=== PATIENT | female | born 1930 | race Caucasian/White ===

== ENCOUNTER 2017-10-10 15:14 | Inpatient (IN) | payer MEDICARE ==
[~2017-10-10] VITALS: Ht 152.4 cm; Wt 66.5 kg
[~2017-10-10 15:14] MED LIST: CALC-137 PO; LEVO.125 PO; LOTE40TA PO; REST0.05 OU; TAB-TAB PO; ZIAC2.5T PO
[2017-10-10 15:32] VITALS: BP 162/65; PULSE 56; RESP 17; TEMP 97.6; O2SAT 98
[2017-10-10] MEDS ORDERED: SODIUM CHLORIDE 0.9% FLUSH 10 ML FLUSH IVF PRN (16:15)
--- NOTE | 2017-10-10 16:35 | PD ---
HPI Chief Complaint: Medical Clearance Time Seen by Provider: 16:01 Travel History International Travel<30 days: No Contact w/Intl Traveler<30days: No Traveled to known affect area: No History of Present Illness HPI Patient is an 87-year-old female presented to the emergency department for evaluation of a near syncopal episode. Patient states she was going to eat with her daughter, she was sitting in the car and she suddenly felt hot, dizzy and as if she was going to pass out. She denies any chest pain or shortness of breath, she states that she just "felt funny". Patient reports feeling tired now and continues to deny any chest pain, shortness of breath, dizziness. She reports that she has not been sleeping well for the last 2 nights because of the temperature in her home. She states that she lives alone. Symptom onset was sudden, symptom severity was moderate, there were no alleviating or exacerbating factors. PFSH Past Medical History Arthritis: Yes Cancer: No Cardiovascular Problems: Yes Diabetes: No Endocrine: Yes Genitourinary: Yes (SLIGHT INCONTINENCE) Hypertension: Yes Immune Disorder: No Implanted Vascular Access Dvce: Yes Musculoskeletal: Yes Neurologic: No Psychiatric: No Reproductive: No Respiratory: No Thyroid Disease: Yes Tetanus Vaccination: Unknown ?: Not Past Surgical History Body Medical Devices: JORGE EYE LENS Eye Surgery: Yes (JORGE CATARACT SX) Joint Replacement: Yes (LEFT TOTAL KNEE) Oral Surgery: Yes (T&A) Pacemaker: No Other Surgery: Yes Social History Alcohol Use: No Tobacco Use: No Substance Use: No Allergies-Medications (Allergen,Severity, Reaction): Coded Allergies: No Known Allergies (Unverified Adverse Reaction, Unknown, 10/10/17) Reported Meds & Prescriptions Reported Meds & Active Scripts Active Reported Amlodipine (Amlodipine Besylate) 5 Mg Tab 5 Mg PO BID PRN Alendronate (Alendronate Sodium) 70 Mg Tab 70 Mg PO Q7D Calcium 600 with Vitamin D (Calcium Carbonate-Cholecalciferol) 600-400 mg-Unit Tab 1 Tab PO DAILY Multi Vitamin Daily (Multiple Vitamin) 1 Tab Tab 1 Tab PO DAILY Restasis Opth (Cyclosporine Opth) 0.05% Emul 1 Drop EACH EYE BID Levothyroxine (Levothyroxine Sodium) 75 Mcg Tab 75 Mcg PO DAILY Bisoprolol-Hydrochlorothiazide 2.5-6.25 Mg Tab 1 Tab PO DAILY Benazepril (Benazepril HCl) 40 Mg Tab 40 Mg PO DAILY Review of Systems Except as stated in HPI: all other systems reviewed are Neg General / Constitutional: Positive: Other (Hot flashes) Eyes: No: Blurred Vision HENT: Positive: Lightheadedness, No: Headaches Cardiovascular: No: Chest Pain or Discomfort Respiratory: No: Shortness of Breath Gastrointestinal: No: Nausea, Abdominal Pain Neurologic: Positive: Dizziness, No: Headache, Change in Mentation Physical Exam Narrative GENERAL: Well-developed, well-nourished, alert elderly female. Presenting in no acute distress. SKIN: Warm and dry. HEAD: Atraumatic. Normocephalic. EYES: Pupils equal and round. No scleral icterus. No injection or drainage. ENT: No nasal bleeding or discharge. Mucous membranes pink and moist. NECK: Trachea midline. No JVD. CARDIOVASCULAR: Regular rate and rhythm. RESPIRATORY: No accessory muscle use. Clear to auscultation. Breath sounds equal bilaterally. GASTROINTESTINAL: Abdomen soft, non-tender, nondistended. Hepatic and splenic margins not palpable. MUSCULOSKELETAL: Extremities without clubbing, cyanosis, or edema. No obvious deformities. NEUROLOGICAL: Awake and alert. No obvious cranial nerve deficits. Motor grossly within normal limits. Five out of 5 muscle strength in the arms and legs. Normal speech. PSYCHIATRIC: Appropriate mood and affect; insight and judgment normal. Data Data Last Documented VS Vital Signs Date Time Temp Pulse Resp B/P (MAP) Pulse Ox O2 Delivery O2 Flow Rate FiO2 10/10/17 17:26 60 18 149/66 (93) 62 19 153/68 (96) 64 20 189/76 (113) 10/10/17 17:21 99 10/10/17 15:32 97.6 Orders Orders Blood Glucose (10/10/17 15:40) Iv Access Insert/Monitor (10/10/17 15:40) Complete Blood Count With Diff (10/10/17 15:40) Basic Metabolic Panel (Bmp) (10/10/17 15:40) Ckmb (Isoenzyme) Profile (10/10/17 15:40) Troponin I (10/10/17 15:40) Electrocardiogram (10/10/17 16:01) Act Partial Throm Time (Ptt) (10/10/17 16:01) Prothrombin Time / Inr (Pt) (10/10/17 16:01) Urinalysis - C+S If Indicated (10/10/17 16:01) Chest, Single Ap (10/10/17 16:01) Ct Brain W/O Iv Contrast(Rout) (10/10/17 16:01) Ecg Monitoring (10/10/17 16:01) Oximetry (10/10/17 16:01) Sodium Chloride 0.9% Flush (Ns Flush) (10/10/17 16:15) Orthostatic Vital Signs (10/10/17 16:01) CKMB (10/10/17 15:45) CKMB% (10/10/17 15:45) Magnesium (Mg) (10/10/17 15:45) Admit Order (Ed Use Only) (10/10/17 18:02) Camp Housekeeper / Telemetry YONATHAN.Q8H (10/10/17 18:02) Vital Signs (Adult) Q4H (10/10/17 18:02) Diet Heart Healthy (10/10/17 Dinner) Activity Bed Rest (10/10/17 18:02) Notify Dr: Other (10/10/17 18:02) Camp Housekeeper / Telemetry YONATHAN.Q8H (10/10/17 18:03) Vital Signs (Adult) Q4H (10/10/17 18:03) Activity Bed Rest (10/10/17 18:03) Notify Dr: Other (10/10/17 18:03) Labs Laboratory Tests Test 10/10/17 15:45 10/10/17 17:40 White Blood Count 4.6 TH/MM3 Red Blood Count 3.76 MIL/MM3 Hemoglobin 11.3 GM/DL Hematocrit 33.3 % Mean Corpuscular Volume 88.5 FL Mean Corpuscular Hemoglobin 30.1 PG Mean Corpuscular Hemoglobin Concent 34.0 % Red Cell Distribution Width 14.5 % Platelet Count 210 TH/MM3 Mean Platelet Volume 8.6 FL Neutrophils (%) (Auto) 62.7 % Lymphocytes (%) (Auto) 27.0 % Monocytes (%) (Auto) 8.2 % Eosinophils (%) (Auto) 1.5 % Basophils (%) (Auto) 0.6 % Neutrophils # (Auto) 2.9 TH/MM3 Lymphocytes # (Auto) 1.2 TH/MM3 Monocytes # (Auto) 0.4 TH/MM3 Eosinophils # (Auto) 0.1 TH/MM3 Basophils # (Auto) 0.0 TH/MM3 CBC Comment DIFF FINAL Differential Comment Blood Urea Nitrogen 20 MG/DL Creatinine 1.33 MG/DL Random Glucose 137 MG/DL Calcium Level 9.4 MG/DL Magnesium Level 1.7 MG/DL Sodium Level 135 MEQ/L Potassium Level 3.7 MEQ/L Chloride Level 97 MEQ/L Carbon Dioxide Level 29.6 MEQ/L Anion Gap 8 MEQ/L Estimat Glomerular Filtration Rate 38 ML/MIN Total Creatine Kinase 118 U/L Creatine Kinase MB 1.2 NG/ML Troponin I LESS THAN 0.02 NG/ML Prothrombin Time 10.3 SEC Prothromb Time International Ratio 1.0 RATIO Activated Partial Thromboplast Time 21.6 SEC MDM Medical Decision Making Medical Screen Exam Complete: Yes Emergency Medical Condition: Yes Interpretation(s) Vital Signs Date Time Temp Pulse Resp B/P (MAP) Pulse Ox O2 Delivery O2 Flow Rate FiO2 10/10/17 15:32 97.6 56 17 162/65 (97) 98 Differential Diagnosis Metabolic abnormality versus cardiac arrhythmia versus CVA versus TIA versus hypoglycemia versus other Narrative Course Patient is well-appearing 87-year-old female presenting for evaluation of a near syncopal episode. Patient's vital signs are stable, she is mildly bradycardic. Labs and imaging ordered and pending. Patient's family is at bedside, they are providing a more complete history. Daughter states that she brought groceries into the house, she came out to the car to get patient out of it and found her slumped over, drooling. She was awake and not very responsive. She said that she could speak but was searching for words. Chest x-ray shows mild basilar fibrotic changes in the lungs, no effusion or pneumothorax. CT scan the brain shows no acute findings. Remote lacunar infarct right basal ganglia. CBC with no acute findings Chemistry with elevated BUN/creatinine 20/1.33 Cardiac enzymes are negative Patient will be admitted for TIA. Admit orders placed. Family and patient advised on findings. Patient is agreeable to stay. Diagnosis Primary Impression: TIA (transient ischemic attack) Qualified Codes: G45.9 - Transient cerebral ischemic attack, unspecified Admitting Information Admitting Physician Requests: Admit Condition: Stable Emy Kramer 15, 2018 16:35
--- NOTE | 2017-10-10 16:41 | RADRPT ---
EXAM DATE/TIME: 10/10/2017 16:28 [facility] COMPARISON: No previous studies available for comparison. INDICATIONS : Syncope episode. RADIATION DOSE: 34.54 CTDIvol (mGy) MEDICAL HISTORY : Hypertension. SURGICAL HISTORY : None. ENCOUNTER: Initial ACUITY: 1 day PAIN SCALE: 0/10 LOCATION: cranial TECHNIQUE: Multiple contiguous axial images were obtained of the head. Using automated exposure control and adj ustment of the mA and/or kV according to patient size, radiation dose was kept as low as reasonably a chievable to obtain optimal diagnostic quality images. DICOM format image data is available electro nically for review and comparison. FINDINGS: CEREBRUM: The ventricles are normal for age. No evidence of midline shift, mass lesion, hemorrhage or acute in farction. No extra-axial fluid collections are seen. POSTERIOR FOSSA: The cerebellum and brainstem are intact. The 4th ventricle is midline. The cerebellopontine angle i s unremarkable. EXTRACRANIAL: The visualized portion of the orbits is intact. SKULL: The calvaria is intact. No evidence of skull fracture. CONCLUSION: 1. No acute findings. Remote lacunar infarct right basal ganglia. Louis Fairbanks MD on October 10, 2017 at 16:38 Board Certified Radiologist. This report was verified electronically.
[2017-10-10 17:01] LABS: AUTOMATED NEUTROPHIL # 2.9 TH/MM3 (1.8-7.7); BASOPHIL % 0.6 % (0.0-2.0); EOSINOPHIL # 0.1 TH/MM3 (0-0.4); EOSINOPHIL % 1.5 % (0.0-4.0); HEMATOCRIT 33.3 % (35.0-46.0); HEMOGLOBIN 11.3 GM/DL (11.6-15.3); LYMPHOCYTE # 1.2 TH/MM3 (1.0-4.8); MEAN CELL VOLUME 88.5 FL (80.0-100.0); MEAN CORPUSCULAR HEMOGLOBIN 30.1 PG (27.0-34.0); MEAN PLATELET VOLUME 8.6 FL (7.0-11.0); MONO % 8.2 % (0.0-8.0); MONOCYTE # 0.4 TH/MM3 (0-0.9); NEUT % 62.7 % (16.0-70.0); PLATELET COUNT 210 TH/MM3 (150-450); RED BLOOD COUNT 3.76 MIL/MM3 (4.00-5.30); RED CELL DISTRIBUTION WIDTH 14.5 % (11.6-17.2); WHITE BLOOD COUNT 4.6 TH/MM3 (4.0-11.0)
--- NOTE | 2017-10-10 17:12 | RADRPT ---
EXAM DATE/TIME: 10/10/2017 16:16 [facility] COMPARISON: No previous studies available for comparison. INDICATIONS : Shortness of breath and disoriented. MEDICAL HISTORY : Hypertension. SURGICAL HISTORY : None. ENCOUNTER: Initial ACUITY: 1 day PAIN SCORE: 0/10 LOCATION: Bilateral chest FINDINGS: A single view of the chest demonstrates mild basilar fibrotic change. No significant effusion. No pne umothorax. Mildly tortuous aorta. CONCLUSION: 1. Mild basilar fibrotic changes in the lungs. No effusion or pneumothorax. Louis Fairbanks MD on October 10, 2017 at 17:09 Board Certified Radiologist. This report was verified electronically.
[2017-10-10 17:21] VITALS: BP 154/73; PULSE 58; RESP 17; O2SAT 99
[2017-10-10] MEDS ORDERED: MULT1TAB46 PO (17:21)
[2017-10-10] MEDS ORDERED: LEVO75TA3 PO (17:21)
[2017-10-10] MEDS ORDERED: REST0.05 EACH EYE (17:21)
[2017-10-10] MEDS ORDERED: CALC1TAB87 PO (17:21)
[2017-10-10] MEDS ORDERED: ALEN1TAB48 PO (17:21)
[2017-10-10] MEDS ORDERED: AMLO5TAB2 PO (17:21)
[2017-10-10] MEDS ORDERED: BENA40TA PO (17:21)
[2017-10-10] MEDS ORDERED: BISO2.5T4 PO (17:21)
[2017-10-10 17:23] LABS: BICARBONATE 29.6 MEQ/L (21.0-32.0); BLOOD UREA NITROGEN 20 MG/DL (7-18); CALCIUM 9.4 MG/DL (8.5-10.1); CHLORIDE 97 MEQ/L (98-107); CREATININE 1.33 MG/DL (0.50-1.00); GLOMERULAR FILTRATION RATE 38 ML/MIN (>89); GLUCOSE,RANDOM 137 MG/DL (74-106); SODIUM (NA) 135 MEQ/L (136-145)
[2017-10-10 17:26] VITALS: BP_SYST 149; BP_SYST 153; BP_SYST 189; BP_DIAS 66; BP_DIAS 68; BP_DIAS 76; RESP 18; RESP 19; RESP 20
[2017-10-10 17:37] LABS: TROPONIN I LESS THAN 0.02 NG/ML (0.02-0.05)
[2017-10-10 18:07] LABS: MAGNESIUM 1.7 MG/DL (1.5-2.5)
[2017-10-10 18:13] LABS: PROTHROMBIN TIME - PATIENT 10.3 SEC (9.8-11.6)
--- NOTE | 2017-10-10 18:41 | PD ---
Physical Exam Date Seen by Provider: Oct 10, 2017 Time Seen by Provider: 17:30 Narrative I, Dr. Johnson, have reviewed the advance practice practitioner's documentation and am in agreement, met with the patient face to face, made the diagnosis, and the medical decision making was done by me. *My assessment and Findings: Patient seen and evaluated with EFREN Quevedo, please see previous notes for further details. Patient apparently has been having episodes of near syncope, dizziness, disorientation and there bring her in for further evaluation. She has no focal symptoms, but does appear to have some word finding difficulties on evaluation. CT the brain did not show any signs of acute intracranial injuries or processes. Lab work was fairly unremarkable. Vital signs are stable in the ER. At this point, plan would be to admit her for further evaluation of the near syncopal episodes. Laboratory Tests Test 10/10/17 15:45 10/10/17 17:40 Red Blood Count 3.76 MIL/MM3 (4.00-5.30) Hemoglobin 11.3 GM/DL (11.6-15.3) Hematocrit 33.3 % (35.0-46.0) Monocytes (%) (Auto) 8.2 % (0.0-8.0) Blood Urea Nitrogen 20 MG/DL (7-18) Creatinine 1.33 MG/DL (0.50-1.00) Random Glucose 137 MG/DL (74-106) Sodium Level 135 MEQ/L (136-145) Chloride Level 97 MEQ/L (98-107) Estimat Glomerular Filtration Rate 38 ML/MIN (>89) Troponin I LESS THAN 0.02 NG/ML Activated Partial Thromboplast Time 21.6 SEC (24.3-30.1) Last [address] 10/10/17 1601 Signed Impressions: Service Date/Time: September 16:28 - CONCLUSION: 1. No acute findings. Remote lacunar infarct right basal ganglia. Louis Fairbanks MD Chest X-Ray 10/10/17 1601 Signed Impressions: Service Date/Time: September 16:16 - CONCLUSION: 1. Mild basilar fibrotic changes in the lungs. No effusion or pneumothorax. Louis Fairbanks MD Data Data Last Documented VS Vital Signs Date Time Temp Pulse Resp B/P (MAP) Pulse Ox O2 Delivery O2 Flow Rate FiO2 10/10/17 17:26 60 18 149/66 (93) 62 19 153/68 (96) 64 20 189/76 (113) 10/10/17 17:21 99 10/10/17 15:32 97.6 Orders Orders Blood Glucose (10/10/17 15:40) Iv Access Insert/Monitor (10/10/17 15:40) Complete Blood Count With Diff (10/10/17 15:40) Basic Metabolic Panel (Bmp) (10/10/17 15:40) Ckmb (Isoenzyme) Profile (10/10/17 15:40) Troponin I (10/10/17 15:40) Electrocardiogram (10/10/17 16:01) Act Partial Throm Time (Ptt) (10/10/17 16:) Prothrombin Time / Inr (Pt) (10/10/17 16:) Urinalysis - C+S If Indicated (10/10/17 16:) Chest, Single Ap (10/10/17 16:) Ct Brain W/O Iv Contrast(Rout) (10/10/17 16:01) Ecg Monitoring (10/10/17 16:01) Oximetry (10/10/17 16:01) Sodium Chloride 0.9% Flush (Ns Flush) (10/10/17 16:15) Orthostatic Vital Signs (10/10/17 16:01) CKMB (10/10/17 15:45) CKMB% (10/10/17 15:45) Magnesium (Mg) (10/10/17 15:45) Admit Order (Ed Use Only) (10/10/17 18:02) C Engineer / Telemetry YONATHAN.Q8H (10/10/17 18:02) Vital Signs (Adult) Q4H (10/10/17 18:02) Diet Heart Healthy (10/10/17 Dinner) Activity Bed Rest (10/10/17 18:02) Notify Dr: Other (10/10/17 18:02) C Engineer / Telemetry YONATHAN.Q8H (10/10/17 18:03) Vital Signs (Adult) Q4H (10/10/17 18:03) Activity Bed Rest (10/10/17 18:03) Notify Dr: Other (10/10/17 18:03) Labs Laboratory Tests Test 10/10/17 15:45 10/10/17 17:40 White Blood Count 4.6 TH/MM3 Red Blood Count 3.76 MIL/MM3 Hemoglobin 11.3 GM/DL Hematocrit 33.3 % Mean Corpuscular Volume 88.5 FL Mean Corpuscular Hemoglobin 30.1 PG Mean Corpuscular Hemoglobin Concent 34.0 % Red Cell Distribution Width 14.5 % Platelet Count 210 TH/MM3 Mean Platelet Volume 8.6 FL Neutrophils (%) (Auto) 62.7 % Lymphocytes (%) (Auto) 27.0 % Monocytes (%) (Auto) 8.2 % Eosinophils (%) (Auto) 1.5 % Basophils (%) (Auto) 0.6 % Neutrophils # (Auto) 2.9 TH/MM3 Lymphocytes # (Auto) 1.2 TH/MM3 Monocytes # (Auto) 0.4 TH/MM3 Eosinophils # (Auto) 0.1 TH/MM3 Basophils # (Auto) 0.0 TH/MM3 CBC Comment DIFF FINAL Differential Comment Blood Urea Nitrogen 20 MG/DL Creatinine 1.33 MG/DL Random Glucose 137 MG/DL Calcium Level 9.4 MG/DL Magnesium Level 1.7 MG/DL Sodium Level 135 MEQ/L Potassium Level 3.7 MEQ/L Chloride Level 97 MEQ/L Carbon Dioxide Level 29.6 MEQ/L Anion Gap 8 MEQ/L Estimat Glomerular Filtration Rate 38 ML/MIN Total Creatine Kinase 118 U/L Creatine Kinase MB 1.2 NG/ML Troponin I LESS THAN 0.02 NG/ML Prothrombin Time 10.3 SEC Prothromb Time International Ratio 1.0 RATIO Activated Partial Thromboplast Time 21.6 SEC [facility] Medical Record Reviewed: Yes Supervised Visit with DAYAMI: Yes Diagnosis Primary Impression: TIA (transient ischemic attack) Qualified Codes: G45.9 - Transient cerebral ischemic attack, unspecified Admitting Information Admitting Physician Requests: Admit Condition: Stable Gómez Johnson MD Oct 10, 2017 18:41
[2017-10-10] MEDS ORDERED: SODIUM CHLORIDE 0.9% FLUSH 10 ML FLUSH IV FLUSH PRN (19:00)
[2017-10-10] MEDS ORDERED: GLUCAGON 1 MG/ML VIAL OTHER PRN (19:00)
[2017-10-10] MEDS ORDERED: DEXTROSE 50% IN WATER 50 ML VIAL(D50) IV PUSH PRN (19:00)
[2017-10-10 19:11] VITALS: BP 181/74; PULSE 54; RESP 16; O2SAT 97
--- NOTE | 2017-10-10 20:06 | HHI.HP ---
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 Patient was out shopping with her daughters today when they were in the car and the daughter said she became slumped over and slurring her words, with complaints of dizziness. She denies any chest pain or shortness of breath. Per the daughter she said when paramedics came and they had to help her onto the stretcher because she was very weak, dizzy and unsteady on her feet. She denies any history of CT or CVA in the past. No issues with hyperlipidemia. No history of DVTs. He shouldn't noted to have a heart rate between 48-56, per the family there are unsure if she's always had a low heart rate. 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 Past Surgical History Appendectomy Hysterectomy Reported Medications Reported Meds & Active Scripts Active Reported Amlodipine (Amlodipine Besylate) 5 Mg Tab 5 Mg PO BID PRN Alendronate (Alendronate Sodium) 70 Mg Tab 70 Mg PO Q7D Calcium 600 with Vitamin D (Calcium Carbonate-Cholecalciferol) 600-400 mg-Unit Tab 1 Tab PO DAILY Multi Vitamin Daily (Multiple Vitamin) 1 Tab Tab 1 Tab PO DAILY Restasis Opth (Cyclosporine Opth) 0.05% Emul 1 Drop EACH EYE BID Levothyroxine (Levothyroxine Sodium) 75 Mcg Tab 75 Mcg PO DAILY Bisoprolol-Hydrochlorothiazide 2.5-6.25 Mg Tab 1 Tab PO DAILY Benazepril (Benazepril HCl) 40 Mg Tab 40 Mg PO DAILY Allergies: Coded Allergies: No Known Allergies (Unverified Allergy, Unknown, 10/10/17) Active Ordered Medications Current Medications Medications (Trade) Dose Ordered Sig/Neha Route Start Time Stop Time Status Last Admin (NS Flush) 2 ml BID IV FLUSH 10/10/17 21:00 (NS Flush) 2 ml UNSCH PRN IV FLUSH 10/10/17 19:00 (NovoLOG SUPPLEMENTAL SCALE) 1 ACHS SQ 10/10/17 21:00 (D50w (Vial) Inj) 50 ml UNSCH PRN IV PUSH 10/10/17 19:00 (Glucagon Inj) 1 mg UNSCH PRN OTHER 10/10/17 19:00 Family History Dad: Emphysema Social History Tobacco: Denies Physical Exam Vital Signs Vital Signs Date Time Temp Pulse Resp B/P (MAP) Pulse Ox O2 Delivery O2 Flow Rate FiO2 10/10/17 19:11 54 16 181/74 (109) 97 Room Air 10/10/17 17:26 60 18 149/66 (93) 62 19 153/68 (96) 64 20 189/76 (113) 10/10/17 17:21 58 17 154/73 (100) 99 10/10/17 15:32 97.6 56 17 162/65 (97) 98 Physical Exam GENERAL: This is a well-nourished, well-developed patient, in no apparent distress. SKIN: No rashes, ecchymoses or lesions. Cool and dry. HEAD: Atraumatic. Normocephalic. EYES: Pupils equal round and reactive. ENT: Nose without bleeding, purulent drainage or septal hematoma. Airway patent. NECK: Trachea midline. No JVD or lymphadenopathy. CARDIOVASCULAR: Bradycardic rate and rhythm without murmurs, gallops, or rubs. RESPIRATORY: Clear to auscultation. Breath sounds equal bilaterally. No wheezes , rales, or rhonchi. GASTROINTESTINAL: Abdomen soft, non-tender, nondistended. MUSCULOSKELETAL: Extremities without clubbing, cyanosis, or edema. No calf tenderness. NEUROLOGICAL: Awake and alert. Motor and sensory grossly within normal limits. Right upper and lower extremity slightly weaker, no upper extremity drift, no facial droop. Normal speech. Laboratory Laboratory Tests Test 10/10/17 15:45 10/10/17 17:40 White Blood Count 4.6 Red Blood Count 3.76 Hemoglobin 11.3 Hematocrit 33.3 Mean Corpuscular Volume 88.5 Mean Corpuscular Hemoglobin 30.1 Mean Corpuscular Hemoglobin Concent 34.0 Red Cell Distribution Width 14.5 Platelet Count 210 Mean Platelet Volume 8.6 Neutrophils (%) (Auto) 62.7 Lymphocytes (%) (Auto) 27.0 Monocytes (%) (Auto) 8.2 Eosinophils (%) (Auto) 1.5 Basophils (%) (Auto) 0.6 Neutrophils # (Auto) 2.9 Lymphocytes # (Auto) 1.2 Monocytes # (Auto) 0.4 Eosinophils # (Auto) 0.1 Basophils # (Auto) 0.0 CBC Comment DIFF FINAL Differential Comment Blood Urea Nitrogen 20 Creatinine 1.33 Random Glucose 137 Calcium Level 9.4 Magnesium Level 1.7 Sodium Level 135 Potassium Level 3.7 Chloride Level 97 Carbon Dioxide Level 29.6 Anion Gap 8 Estimat Glomerular Filtration Rate 38 Total Creatine Kinase 118 Creatine Kinase MB 1.2 Troponin I LESS THAN 0.02 Prothrombin Time 10.3 Prothromb Time International Ratio 1.0 Activated Partial Thromboplast Time 21.6 Result Diagram: 10/10/17 1545 10/10/17 1545 Imaging Last Impressions Head CT 10/10/17 1601 Signed Impressions: Service Date/Time: September 16:28 - CONCLUSION: 1. No acute findings. Remote lacunar infarct right basal ganglia. Louis Fairbanks MD Chest X-Ray 10/10/17 1601 Signed Impressions: Service Date/Time: September 16:16 - CONCLUSION: 1. Mild basilar fibrotic changes in the lungs. No effusion or pneumothorax. Louis Fairbanks MD Caprini VTE Risk Assessment Caprini VTE Risk Assessment: Mod/High Risk (score >= 2) Caprini Risk Assessment Model Point Value = 1 Point Value = 2 Point Value = 3 Point Value = 5 Age 41-60 Minor surgery BMI > 25 kg/m2 Swollen legs Varicose veins or History of unexplained or recurrent spontaneous Oral contraceptives or hormone replacement Sepsis (< 1 month) Serious lung disease, including pneumonia (< 1 month) Abnormal pulmonary function Acute myocardial infarction Congestive heart failure (< 1 month) History of inflammatory bowel disease Medical patient at bed rest Age 61-74 Arthroscopic surgery Major open surgery (> 45 min) Laparoscopic surgery (> 45 min) Malignancy Confined to bed (> 72 hours) Immobilizing plaster cast Central venous access Age >= 75 History of VTE Family history of VTE Factor V Leiden Prothrombin [id number] Lupus anticoagulant Anticardiolipin antibodies Elevated serum homocysteine Heparin-induced thrombocytopenia Other congenital or acquired thrombophilia Stroke (< 1 month) Elective arthroplasty Hip, pelvis, or leg fracture Acute spinal cord injury (< 1 month) Prophylaxis Regimen Total Risk Factor Score Risk Level Prophylaxis Regimen 0-1 Low Early ambulation 2 Moderate Order ONE of the following: *Sequential Compression Device (SCD) *Heparin 5000 units SQ BID 3-4 Higher Order ONE of the following medications: *Heparin 5000 units SQ TID *Enoxaparin/Lovenox 40 mg SQ daily (WT < 150 kg, CrCl > 30 mL/min) *Enoxaparin/Lovenox 30 mg SQ daily (WT < 150 kg, CrCl > 10-29 mL/min) *Enoxaparin/Lovenox 30 mg SQ BID (WT < 150 kg, CrCl > 30 mL/min) AND/OR *Sequential Compression Device (SCD) 5 or more Highest Order ONE of the following medications: *Heparin 5000 units SQ TID (Preferred with Epidurals) *Enoxaparin/Lovenox 40 mg SQ daily (WT < 150 kg, CrCl > 30 mL/min) *Enoxaparin/Lovenox 30 mg SQ daily (WT < 150 kg, CrCl > 10-29 mL/min) *Enoxaparin/Lovenox 30 mg SQ BID (WT < 150 kg, CrCl > 30 mL/min) AND *Sequential Compression Device (SCD) Assessment and Plan Problem List: (1) Hypertension ICD Code: I10 - Essential (primary) hypertension Status: Chronic (2) CVA (cerebral vascular accident) ICD Code: I63.9 - Cerebral infarction, unspecified Status: Acute (3) Symptomatic bradycardia ICD Code: R00.1 - Bradycardia, unspecified Assessment and Plan 87-year-old female with a history of hypertension, 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 CVA Head CT reviewed and shows a remote lacunar infarct right basal ganglia -Consult neurology for recommendations -MRA MRI ordered -Carotid ultrasounds 2-D echo ordered -PT eval and treat -NIH stroke scale -Lipid profile ordered Symptomatically bradycardia, suspected Heart rate of 50s, high 40s EKG reviewed and shows sinus bradycardia heart rate 55 -Monitor telemetry -Consult cardiology for recommendations Acute kidney injury, creatinine 1.33 unknown baseline, suspect dehydration -IVF hydration -Check creatinine in a.m. -Avoid nephrotoxins Hypertension, chronic -Allow for permissive hypertension for 24 hours -Clonidine when necessary for blood pressure greater than 220 -Resumed home medications once cleared by neurology Anemia, hemoglobin 11.3 -Likely chronic we will check iron profile and ferritin levels Hypothyroid, chronic -Resume home medications, check TSH DVT prophylaxis: SCDs Discussed Condition With Patient, RN and patient's daughter Physician Certification 2 Midnight Certification Type: Admission for Inpatient Services Order for Inpatient Services The services are ordered in accordance with Medicare regulations or non- Medicare payer requirements, as applicable. In the case of services not specified as inpatient-only, they are appropriately provided as inpatient services in accordance with the 2-midnight benchmark. Estimated LOS (days): 2 days is the estimated time the patient will need to remain in the hospital, assuming treatment plan goals are met and no additional complications. Post-Hospital Plan: Home Problem Qualifiers (1) Hypertension: Qualified Codes: I10 - Essential (primary) hypertension (2) CVA (cerebral vascular accident): Qualified Codes: I63.22 - Cerebral infarction due to unspecified occlusion or stenosis of basilar artery Mirtha Sheppard Oct 10, 2017 20:06
[2017-10-10] MEDS ORDERED: PATIENT OWN MEDICATION (Cyclosporine Opth (Restasis Opth) 1 DROP) EACH EYE SCH (21:00)
[2017-10-10 21:40] VITALS: BP 149/74; PULSE 58; RESP 17; TEMP 98; O2SAT 96
[2017-10-10 22:20] VITALS: PULSE 60
[2017-10-10 22:23] LABS: % SATURATION IRON PROFILE 21.6 % (20-50); IRON (FE) 70 MCG/DL (50-170); TOTAL IRON BINDING CAPACITY 323 MCG/DL (250-450)
[2017-10-10 22:33] LABS: HEMOGLOBIN A1C 6.1 % (4.3-6.0)
[2017-10-10] MEDS: INSULIN ASPART SUPPLEMENTAL SCALE SQ SCH (22:50)
--- NOTE | 2017-10-10 22:51 | RADRPT ---
EXAM DATE/TIME: 10/10/2017 20:22 [facility] COMPARISON: MRI BRAIN W/O CONTRAST, October 10, 2017, 20:22. INDICATIONS : CVA. Struggling to find words. MEDICAL HISTORY : Hypertension. SURGICAL HISTORY : Appendectomy. Hysterectomy. Bilateral knee replacements. ENCOUNTER: Initial ACUITY: 1 day PAIN SCORE: 0/10 LOCATION: Head. Please note a normal MRA of the brain does not entirely exclude the possibility of a small aneurysm, nor the possibility of distal intracranial vessel disease. TECHNIQUE: 3D time of flight MRA was performed. Source images, multiplanar STS MIP, and 3D volume MIP reconstru ctions were reviewed. FINDINGS: There is excellent visualization of the major intracranial arteries out to the second-order branch ve ssels. Heterogeneity in the distal left internal carotid artery may represent some atherosclerotic di sease or flow artifact. Regardless, this does not appear to be flow limiting and there is no emboli t o the distal branch vessels to explain current clinical symptoms. Otherwise, intracranial vessels are all patent without aneurysmal disease. Patient is left vertebral dominant. CONCLUSION: 1. Heterogeneity of the distal left internal carotid artery may represent atherosclerotic disease [place] flow artifact. Regardless, this does not appear to be flow-limiting and there is no occlusive emb verenice to explain current clinical symptoms. 2. Otherwise, intracranial vessels are all patent without aneurysmal disease. Patient is left vertebr al dominant Bj Altamirano MD on October 10, 2017 at 22:43 Board Certified Radiologist. This report was verified electronically.
--- NOTE | 2017-10-10 22:52 | RADRPT ---
EXAM DATE/TIME: 10/10/2017 20:22 [facility] COMPARISON: No previous studies available for comparison. INDICATIONS : CVA. Struggling to find words. MEDICAL HISTORY : Hypertension. SURGICAL HISTORY : Hysterectomy. Bilateral knee replacements. ENCOUNTER: Initial ACUITY: 1 day PAIN SCORE: 0/10 LOCATION: Head. TECHNIQUE: Multiplanar, multisequence MRI of the brain was performed without contrast. FINDINGS: CEREBRUM: The ventricles are normal for age. No evidence of midline shift, mass lesion, hemorrhage or acute in farction. No extraaxial fluid collections are seen. The pituitary gland and suprasellar cistern are normal in configuration. WHITE MATTER: Moderately severe periventricular and scattered deep white matter tract small vessel ischemic [place]. POSTERIOR FOSSA: The cerebellum and brainstem are intact. The 4th ventricle is midline. The cerebellopontine angle is unremarkable. The cerebellar tonsils are normal in position. DIFFUSION IMAGING: No focal areas of restricted diffusion are seen. No evidence of acute infarction. EXTRACRANIAL: The visualized portions of the orbits and paranasal sinuses are unremarkable. CONCLUSION: 1. Chronic changes of moderately severe periventricular and scattered deep white matter tract small v essel ischemic demyelination. 2. Nothing acute. Bj Altamirano MD on October 10, 2017 at 22:49 Board Certified Radiologist. This report was verified electronically.
[2017-10-10 22:55] LABS: FERRITIN 235 NG/ML (8-252)
[2017-10-10] MEDS: SODIUM CHLOR 0.9% 1000 ML INJ 1,000 ML IV SCH (23:30)
[2017-10-10] MEDS: SODIUM CHLORIDE 0.9% FLUSH 10 ML FLUSH IV FLUSH SCH (23:30)
--- NOTE | 2017-10-10 23:35 | RADRPT ---
EXAM DATE/TIME: 10/10/2017 22:44 [facility] COMPARISON: No previous studies available for comparison. INDICATIONS : Cerebrovascular accident. MEDICAL HISTORY : Hypertension. Arthritis. SURGICAL HISTORY : Tonsillectomy. Cataract surgery. Left total knee replacement. ENCOUNTER: Initial ACUITY: 1 day PAIN SCORE: 0/10 LOCATION: Bilateral neck PEAK SYSTOLIC VELOCITIES (cm/sec): ICA/CCA RATIO: Right: 1.0 Left: 0.8 ICA: Right: 73 Left: 56 CCA: Right: 71 Left: 67 ECA: Right: 68 Left: 109 VERTEBRAL: Right: 46 antegrade Left: 50 antegrade Elevated flow velocities and ICA/CCA ratios have been found to correlate with increased degrees of vessel stenosis, calculated as percentage of diameter relative to a normal segment of distal ICA/CCA FINDINGS: RIGHT CAROTID: No significant stenosis is visualized. Minimal calcified plaque in the carotid bulb/proximal interna l. The waveforms are within normal limits. LEFT CAROTID: No significant stenosis is visualized. Minimal calcified plaquing in the carotid bulb/proximal inter nal. The waveforms are within normal limits. VERTEBRAL ARTERIES: Antegrade flow is seen in both vertebral arteries. MISCELLANEOUS: None. CONCLUSION: 1. Minimal calcified plaquing in both carotid bulbs. 2. Otherwise, no sonographic or Doppler findings of a hemodynamically significant stenosis. Antegrade flow in both vertebral arteries. Bj Altamirano MD on October 10, 2017 at 23:31 Board Certified Radiologist. This report was verified electronically.
[2017-10-11] VITALS (8 sets, daily range): BP systolic 132–187; BP diastolic 64–80; PULSE 53–69; RESP 17–20; TEMP 97.4–98.1; O2SAT 93–97
[2017-10-11] MEDS ORDERED: LEVOTHYROXINE SODIUM 75 MCG TAB PO SCH (06:00)
[2017-10-11 07:40] LABS: AUTOMATED NEUTROPHIL # 2.4 TH/MM3 (1.8-7.7); BASOPHIL % 0.6 % (0.0-2.0); EOSINOPHIL # 0.1 TH/MM3 (0-0.4); HEMATOCRIT 31.9 % (35.0-46.0); HEMOGLOBIN 10.7 GM/DL (11.6-15.3); LYMPH % 29.2 % (9.0-44.0); LYMPHOCYTE # 1.2 TH/MM3 (1.0-4.8); MEAN CELL VOLUME 88.2 FL (80.0-100.0); MEAN CORPUSCULAR HEMOGLOBIN 29.7 PG (27.0-34.0); MEAN CORPUSCULAR HGB CONC 33.6 % (32.0-36.0); MEAN PLATELET VOLUME 8.3 FL (7.0-11.0); MONOCYTE # 0.4 TH/MM3 (0-0.9); NEUT % 59.2 % (16.0-70.0); PLATELET COUNT 197 TH/MM3 (150-450); RED BLOOD COUNT 3.61 MIL/MM3 (4.00-5.30); RED CELL DISTRIBUTION WIDTH 14.7 % (11.6-17.2); WHITE BLOOD COUNT 4.1 TH/MM3 (4.0-11.0)
[2017-10-11] MEDS: INSULIN ASPART SUPPLEMENTAL SCALE SQ SCH ×4 (08:00→20:29)
[2017-10-11 08:03] LABS: BICARBONATE 30.1 MEQ/L (21.0-32.0); CREATININE 0.96 MG/DL (0.50-1.00)
[2017-10-11 08:14] LABS: CHOLESTEROL/ HDL RATIO 2.45 RATIO; HDL CHOLESTEROL 79.8 MG/DL (40.0-60.0)
[2017-10-11] MEDS ORDERED: amLODIPine BESYLATE 5 MG TAB PO PRN (08:45)
[2017-10-11] MEDS: SODIUM CHLORIDE 0.9% FLUSH 10 ML FLUSH IV FLUSH SCH ×2 (09:00→20:28)
--- NOTE | 2017-10-11 09:26 | PD.CONS ---
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 Daughter states she was out shopping with patient, came home and dropped some bags off in the house while her mother remained in the car; when she returned her mother was slumped over and drooling; she was arousable and had difficulty speaking. patient does not recall this event. She was found to be in normal sinus rhythm upon evaluation with HR in the 50-60's. Studies have revealed a lacunar infarct; negative carotid ultrasound and negative troponin level. She is currently resting comfortably and enjoying her breakfast. She is speaking clearly with no deficit. She denies chest pain,sob or palpitations. 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 hypothyroid Past Surgical History Appendectomy Hysterectomy Reported Medications Reported Meds & Active Scripts Active Reported Amlodipine (Amlodipine Besylate) 5 Mg Tab 5 Mg PO BID PRN Alendronate (Alendronate Sodium) 70 Mg Tab 70 Mg PO Q7D Calcium 600 with Vitamin D (Calcium Carbonate-Cholecalciferol) 600-400 mg-Unit Tab 1 Tab PO DAILY Multi Vitamin Daily (Multiple Vitamin) 1 Tab Tab 1 Tab PO DAILY Restasis Opth (Cyclosporine Opth) 0.05% Emul 1 Drop EACH EYE BID Levothyroxine (Levothyroxine Sodium) 75 Mcg Tab 75 Mcg PO DAILY Bisoprolol-Hydrochlorothiazide 2.5-6.25 Mg Tab 1 Tab PO DAILY Benazepril (Benazepril HCl) 40 Mg Tab 40 Mg PO DAILY Active Ordered Medications Current Medications Medications (Trade) Dose Ordered Sig/Neha Route Start Time Stop Time Status Last Admin (NS Flush) 2 ml BID IV FLUSH 10/10/17 21:00 10/10/17 23:30 (NS Flush) 2 ml UNSCH PRN IV FLUSH 10/10/17 19:00 (NovoLOG SUPPLEMENTAL SCALE) 1 ACHS SQ 10/10/17 21:00 (D50w (Vial) Inj) 50 ml UNSCH PRN IV PUSH 10/10/17 19:00 (Glucagon Inj) 1 mg UNSCH PRN OTHER 10/10/17 19:00 Sodium Chloride 1,000 ml @ 84 mls/hr [id number] IV 10/10/17 20:30 10/10/17 23:30 (Synthroid) 75 mcg DAILY@0600 PO 10/11/17 06:00 10/11/17 05:42 Patient Own Medication PT OWN MED: (Cyclosporine O... 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 hyothyroid Past Surgical History Appendectomy Hysterectomy Dad: Emphysema Social History Tobacco: Denies Physical Exam Vital Signs Vital Signs Date Time Temp Pulse Resp B/P (MAP) Pulse Ox O2 Delivery O2 Flow Rate FiO2 10/11/17 08:33 58 10/11/17 07:46 97.8 60 20 187/80 (115) 96 10/11/17 04:45 98.0 60 17 170/73 (105) 97 10/11/17 00:46 53 10/11/17 00:30 97.7 59 18 145/78 (100) 97 10/10/17 22:20 60 10/10/17 21:40 98.0 58 17 149/74 (99) 96 10/10/17 20:24 10/10/17 19:11 54 16 181/74 (109) 97 Room Air 10/10/17 17:26 60 18 149/66 (93) 62 19 153/68 (96) 64 20 189/76 (113) 10/10/17 17:21 58 17 154/73 (100) 99 10/10/17 15:32 97.6 56 17 162/65 (97) 98 Physical Exam GENERAL: SKIN: Warm and dry. HEAD: Atraumatic. Normocephalic. EYES: Pupils equal and round. No scleral icterus. ENT: No nasal bleeding or discharge. NECK: Trachea midline. No JVD. CARDIOVASCULAR: Regular rate and rhythm. no murmurs RESPIRATORY: No accessory muscle use. Clear to auscultation. Breath sounds equal bilaterally. GASTROINTESTINAL: Abdomen soft, non-tender, nondistended. MUSCULOSKELETAL: Extremities without clubbing, cyanosis, or edema. No obvious deformities. NEUROLOGICAL: Awake and alert. No obvious cranial nerve deficits. Normal speech. PSYCHIATRIC: Appropriate mood and affect; insight and judgment normal. Laboratory Laboratory Tests Test 10/10/17 15:45 10/10/17 17:40 10/11/17 06:26 White Blood Count 4.6 4.1 Red Blood Count 3.76 3.61 Hemoglobin 11.3 10.7 Hematocrit 33.3 31.9 Mean Corpuscular Volume 88.5 88.2 Mean Corpuscular Hemoglobin 30.1 29.7 Mean Corpuscular Hemoglobin Concent 34.0 33.6 Red Cell Distribution Width 14.5 14.7 Platelet Count 210 197 Mean Platelet Volume 8.6 8.3 Neutrophils (%) (Auto) 62.7 59.2 Lymphocytes (%) (Auto) 27.0 29.2 Monocytes (%) (Auto) 8.2 9.0 Eosinophils (%) (Auto) 1.5 2.0 Basophils (%) (Auto) 0.6 0.6 Neutrophils # (Auto) 2.9 2.4 Lymphocytes # (Auto) 1.2 1.2 Monocytes # (Auto) 0.4 0.4 Eosinophils # (Auto) 0.1 0.1 Basophils # (Auto) 0.0 0.0 CBC Comment DIFF FINAL DIFF FINAL Differential Comment Blood Urea Nitrogen 20 21 Creatinine 1.33 0.96 Random Glucose 137 118 Calcium Level 9.4 9.0 Magnesium Level 1.7 Sodium Level 135 135 Potassium Level 3.7 3.4 Chloride Level 97 97 Carbon Dioxide Level 29.6 30.1 Anion Gap 8 8 Estimat Glomerular Filtration Rate 38 55 Hemoglobin A1c 6.1 Iron Level 70 Total Iron Binding Capacity 323 Percent Iron Saturation 21.6 Ferritin 235 Total Creatine Kinase 118 Creatine Kinase MB 1.2 Troponin I LESS THAN 0.02 Prothrombin Time 10.3 Prothromb Time International Ratio 1.0 Activated Partial Thromboplast Time 21.6 Triglycerides Level 60 Cholesterol Level 196 LDL Cholesterol 104 HDL Cholesterol 79.8 Cholesterol/HDL Ratio 2.45 Thyroid Stimulating Hormone 3rd Gen 9.300 Result Diagram: 10/11/17 0626 10/11/17 06 Imaging Last [address] 10/10/17 1601 Signed Impressions: Service Date/Time: , October 10, 2017 16:28 - CONCLUSION: 1. No acute findings. Remote lacunar infarct right basal ganglia. Louis Fairbanks MD Chest X-Ray 10/10/17 1601 Signed Impressions: Service Date/Time: , October 10, 2017 16:16 - CONCLUSION: 1. Mild basilar fibrotic changes in the lungs. No effusion or pneumothorax. 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 Daughter states she was out shopping with patient, came home and dropped some bags off in the house while her mother remained in the car; when she returned her mother was slumped over and drooling; she was arousable and had difficulty speaking. patient does not recall this event CVA- carotid studies normal. review of telemetry does not show any concerning arrhythmia. HR upper 40's overnight, but remains 50-60bpm this morning. avoid AV genna blocking agents. rule out cardioembolic source with outpatient 30 day event monitoring. consult neurology to determine if patient a candidate for coumadin vs. asa/ plavix RADHA not necessary due to age. echo pending. Problem Qualifiers (1) CVA (cerebral vascular accident): Qualified Codes: I63.22 - Cerebral infarction due to unspecified occlusion or stenosis of basilar artery (2) Hypertension: Qualified Codes: I10 - Essential (primary) hypertension Anjelica Tejeda Oct 11, 2017 09:26
[2017-10-11] MEDS: SODIUM CHLOR 0.9% 1000 ML INJ 1,000 ML IV SCH (09:36)
[2017-10-11] MEDS: LISINOPRIL 20 MG TAB PO SCH (09:36)
--- NOTE | 2017-10-11 11:27 | HHI.PR ---
Subjective Remarks Patient reports she is feeling much better. Discussed with daughter at bedside , speech is clear. No focal weakness. Objective Vitals Vital Signs Date Time Temp Pulse Resp B/P (MAP) Pulse Ox O2 Delivery O2 Flow Rate FiO2 10/11/17 08:33 58 10/11/17 07:46 97.8 60 20 187/80 (115) 96 10/11/17 04:45 98.0 60 17 170/73 (105) 97 10/11/17 00:46 53 10/11/17 00:30 97.7 59 18 145/78 (100) 97 10/10/17 22:20 60 10/10/17 21:40 98.0 58 17 149/74 (99) 96 10/10/17 20:24 10/10/17 19:11 54 16 181/74 (109) 97 Room Air 10/10/17 17:26 60 18 149/66 (93) 62 19 153/68 (96) 64 20 189/76 (113) 10/10/17 17:21 58 17 154/73 (100) 99 10/10/17 15:32 97.6 56 17 162/65 (97) 98 I/O 10/10/17 10/10/17 10/10/17 10/11/17 10/11/17 10/11/17 07:00 15:00 23:00 07:00 15:00 23:00 Intake Total 0 ml 100 ml 790 ml Balance 0 ml 100 ml 790 ml Intake Oral 0 ml 100 ml IV Total 790 ml # Voids 1 2 # Bowel Movements 0 0 Result Diagram: 10/11/17 0626 10/11/17 06 Objective Remarks GENERAL: This is a well-nourished, well-developed patient, in no apparent distress. CARDIOVASCULAR: Normal rate and regular rhythm without murmurs, gallops, or rubs. RESPIRATORY: Good respiratory efforts. Breath sounds equal and clear to auscultation bilaterally. GASTROINTESTINAL: Abdomen soft, non-tender, non-distended. Normal active bowel sounds MUSCULOSKELETAL: Extremities without cyanosis, or edema. NEURO: Alert & Oriented x4 to person, place, time, situation. Moves all ext x4 PSYCH: Appropriate mood and affect. A/P Problem List: (1) Hypertension ICD Code: I10 - Essential (primary) hypertension Status: Chronic (2) CVA (cerebral vascular accident) ICD Code: I63.9 - Cerebral infarction, unspecified Status: Acute (3) Symptomatic bradycardia ICD Code: R00.1 - Bradycardia, unspecified Assessment and Plan 87-year-old female with a history of hypertension, 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 CVA Head CT reviewed and shows a remote lacunar infarct right basal ganglia -Neurology consulted for recs -MRA MRI pending -Carotid ultrasounds 2-D echo ordered -PT eval and treat -Lipid profile Symptomatically bradycardia, suspected Heart rate of 50s, high 40s Tele reviewed, - Hold Bisoprolol/HCTZ - Monitor telemetry - Cardiology consulted for recommendations Acute kidney injury, suspect dehydration -Resolved with IVF, DC IVF Hypertension, chronic -Resume Amlodipine and Benazepril. Continue to hold -Clonidine PRN Anemia, hemoglobin 11.3 -Likely chronic. iron panel unremarkable Hypothyroid, chronic, uncontrolled. -Increase Synthroid dosage. Follow up TSH advised in 6 weeks DVT prophylaxis: SCDs Problem Qualifiers (1) Hypertension: Qualified Codes: I10 - Essential (primary) hypertension (2) CVA (cerebral vascular accident): Qualified Codes: I63.22 - Cerebral infarction due to unspecified occlusion or stenosis of basilar artery Jasper Evans MD Oct 11, 2017 11:27
--- NOTE | 2017-10-11 14:33 | EKG ---
Date Performed: 10/10/2017 Time Performed: 16:08:05 PTAGE: 87 years EKG: SINUS BRADYCARDIA MODERATE VOLTAGE CRITERIA FOR LVH, CONSIDER NORMAL VARIANT BORDERLINE ECG PREVIOUS TRACING 08/21/1998 Rate has slowed. Clinical correlation is recommended. DOCTOR: Florin Hernandez Interpretating Date/Time 10/11/2017 14:33:32
--- NOTE | 2017-10-11 14:55 | PD.CONS ---
History of Present Illness Service Neurology Consult Requested By medical Reason for Consult tia Primary Care Physician Unknown History of Present Illness 87-year-old female admitted for transient episode. was in car with daughter when suddenly she had some difficulty getting her words out, left facial droop and some frothing. lasted a few minutes and she improved. no florence, no focal weakness. no hx tia/stroke. does not take any blood thinners. uses a cane at baseline to ambulate with. mri brain no acute infarct. carotid no significant stenosis. mra brain some intracranial atherosclerotic dz. Review of Systems Except as stated in HPI: all other systems reviewed are Neg Past Family Social History Past Medical History HTN [place] palsy 30 years-left side hyothyroid Past Surgical History Appendectomy Hysterectomy Allergies: Coded Allergies: No Known Allergies (Unverified Allergy, Unknown, 10/10/17) Family History Dad: Emphysema Social History Tobacco: Denies no etoh, no illicit drug use Review of Systems All other ROS: ROS reviewed as documented in chart Past Family Social History Allergies: Coded Allergies: No Known Allergies (Unverified Allergy, Unknown, 10/10/17) Active Ordered Medications Current Medications Medications (Trade) Dose Ordered Sig/Neha Route Start Time Stop Time Status Last Admin (NS Flush) 2 ml BID IV FLUSH 10/10/17 21:00 10/10/17 23:30 (NS Flush) 2 ml UNSCH PRN IV FLUSH 10/10/17 19:00 (NovoLOG SUPPLEMENTAL SCALE) 1 ACHS SQ 10/10/17 21:00 (D50w (Vial) Inj) 50 ml UNSCH PRN IV PUSH 10/10/17 19:00 (Glucagon Inj) 1 mg UNSCH PRN OTHER 10/10/17 19:00 Sodium Chloride 1,000 ml @ 84 mls/hr [id number] IV 10/10/17 20:30 10/11/17 09:36 (Norvasc) 5 mg BID PRN PO 10/11/17 08:45 (Prinivil) 40 mg DAILY PO 10/11/17 09:00 10/11/17 09:36 (Synthroid) 100 mcg DAILY@0600 PO 10/12/17 06:00 Patient Own Medication PT OWN MED: RESTASIS (CYCLOSPORI... BID EACH EYE 10/11/17 21:00 Exam I&O / VS 3/10/11/17 10/12/17 15:00 23:00 07:00 Intake Total 790 ml Balance 790 ml IV Total 790 ml Vital Signs Date Time Temp Pulse Resp B/P (MAP) Pulse Ox O2 Delivery O2 Flow Rate FiO2 10/11/17 12:13 97.6 56 20 157/70 (99) 93 10/11/17 08:33 58 10/11/17 07:46 97.8 60 20 187/80 (115) 96 10/11/17 04:45 98.0 60 17 170/73 (105) 97 10/11/17 00:46 53 10/11/17 00:30 97.7 59 18 145/78 (100) 97 10/10/17 22:20 60 10/10/17 21:40 98.0 58 17 149/74 (99) 96 10/10/17 20:24 10/10/17 19:11 54 16 181/74 (109) 97 Room Air 10/10/17 17:26 60 18 149/66 (93) 62 19 153/68 (96) 64 20 189/76 (113) 10/10/17 17:21 58 17 154/73 (100) 99 10/10/17 15:32 97.6 56 17 162/65 (97) 98 General: Alert and Oriented, No acute distress Eye: EOMI Respiratory: Non-labored respirations Neurologic: Alert, Oriented, Normal sensory, Normal motor, No focal defects, CN II-XII intact, Normal DTR's Psychiatric: Cooperative, Appropriate mood & affect Review/Management Diagnosis/Plan: (1) TIA (transient ischemic attack) ICD Codes: G45.9 - Transient cerebral ischemic attack, unspecified Status: Acute Plan: possible tia recs aspirin/plavix. stop aspirin in 2-3 months okay for OAC if afib found or cardiology feels that pt should be on it event monitor per cardio statin can f/u with us in 2-3 weeks no driving (2) Hypertension ICD Codes: I10 - Essential (primary) hypertension Status: Chronic (3) Symptomatic bradycardia ICD Codes: R00.1 - Bradycardia, unspecified Problem Qualifiers (1) TIA (transient ischemic attack): Qualified Codes: G45.9 - Transient cerebral ischemic attack, unspecified (2) Hypertension: Qualified Codes: I10 - Essential (primary) hypertension Luke Kincaid MD Oct 11, 2017 14:55
[2017-10-11] MEDS ORDERED: CLOPIDOGREL 75 MG TAB PO SCH (15:00)
[2017-10-11] MEDS: ASPIRIN 325 MG TAB PO SCH (16:40)
[2017-10-11] MEDS: PATIENT OWN MEDICATION (Cyclosporine Opth (Restasis Opth) 1 DROP) EACH EYE SCH (20:29)
[2017-10-11] MEDS ORDERED: ATORVASTATIN 40 MG TAB PO SCH (21:00)
[2017-10-12] VITALS (7 sets, daily range): BP systolic 156–191; BP diastolic 62–89; PULSE 55–84; RESP 17–19; TEMP 97.7–99.6; O2SAT 94–97
[2017-10-12] MEDS ORDERED: LEVOTHYROXINE SODIUM 100 MCG TAB PO SCH (06:00)
[2017-10-12] MEDS: INSULIN ASPART SUPPLEMENTAL SCALE SQ SCH (08:00)
[2017-10-12] MEDS: LISINOPRIL 20 MG TAB PO SCH (09:28)
[2017-10-12] MEDS: SODIUM CHLORIDE 0.9% FLUSH 10 ML FLUSH IV FLUSH SCH (09:28)
[2017-10-12] MEDS: ASPIRIN 325 MG TAB PO SCH (09:28)
[2017-10-12] MEDS: PATIENT OWN MEDICATION (Cyclosporine Opth (Restasis Opth) 1 DROP) EACH EYE SCH (09:29)
[2017-10-12] MEDS ORDERED: LISINOPRIL 5 MG TAB PO ONE (11:30)
[2017-10-12] MEDS ORDERED: amLODIPine BESYLATE 5 MG TAB PO ONE (11:45)
[2017-10-12] MEDS ORDERED: AMLO10TA2 PO (12:07)
[2017-10-12] MEDS ORDERED: PLAV75TA29 PO (12:07)
[2017-10-12] MEDS ORDERED: ATOR40TA16 PO (12:07)
[2017-10-12] MEDS ORDERED: LEVO100T5 PO (12:07)
[2017-10-12] MEDS ORDERED: ASA325 PO (12:08)
--- NOTE | 2017-10-12 12:10 | HHI.FF ---
Face to Face Verification Diagnosis: (1) TIA (transient ischemic attack) (2) Hypertension (3) Symptomatic bradycardia Physical Therapy Order: Evaluate and Treat, Strength and gait training Home Health Nursing Order: Medical education Medication education-adverse effect Nursing assessment with vital signs I have seen patient Krystina Morales on 10/12/17. My clinical findings support the need for the requested home health care services because: Need for psychosocial assistance High risk of falls I certify that my clinical findings support that this patient is homebound because: Need for psychosocial assistance Jasper Evans MD Oct 12, 2017 12:10
--- NOTE | 2017-10-12 12:11 | HHI.DS ---
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 Patient was out shopping with her daughters today when they were in the car and the daughter said she became slumped over and slurring her words, with complaints of dizziness. She denies any chest pain or shortness of breath. Per the daughter she said when paramedics came and they had to help her onto the stretcher because she was very weak, dizzy and unsteady on her feet. She denies any history of CA or CVA in the past. No issues with hyperlipidemia. No history of DVTs. He shouldn't noted to have a heart rate between 48-56, per the family there are unsure if she's always had a low heart rate. CBC/BMP: 10/11/17 0626 10/11/17 0626 Significant Findings Laboratory Tests Test 10/10/17 15:45 10/10/17 17:40 10/11/17 06:26 Red Blood Count 3.76 MIL/MM3 (4.00-5.30) 3.61 MIL/MM3 (4.00-5.30) Hemoglobin 11.3 GM/DL (11.6-15.3) 10.7 GM/DL (11.6-15.3) Hematocrit 33.3 % (35.0-46.0) 31.9 % (35.0-46.0) Monocytes (%) (Auto) 8.2 % (0.0-8.0) 9.0 % (0.0-8.0) Blood Urea Nitrogen 20 MG/DL (7-18) 21 MG/DL (7-18) Creatinine 1.33 MG/DL (0.50-1.00) Random Glucose 137 MG/DL (74-106) 118 MG/DL (74-106) Sodium Level 135 MEQ/L (136-145) 135 MEQ/L (136-145) Chloride Level 97 MEQ/L (98-107) 97 MEQ/L (98-107) Estimat Glomerular Filtration Rate 38 ML/MIN (>89) 55 ML/MIN (>89) Hemoglobin A1c 6.1 % (4.3-6.0) Troponin I LESS THAN 0.02 NG/ML Activated Partial Thromboplast Time 21.6 SEC (24.3-30.1) Potassium Level 3.4 MEQ/L (3.5-5.1) LDL Cholesterol 104 MG/DL (0-99) HDL Cholesterol 79.8 MG/DL (40.0-60.0) Thyroid Stimulating Hormone 3rd Gen 9.300 uIU/ML (0.358-3.740) Imaging Last Impressions Head CT 10/10/17 1601 Signed Impressions: Service Date/Time: September 16:28 - CONCLUSION: 1. No acute findings. Remote lacunar infarct right basal ganglia. Louis Fairbanks MD Chest X-Ray 10/10/17 1601 Signed Impressions: Service Date/Time: September 16:16 - CONCLUSION: 1. Mild basilar fibrotic changes in the lungs. No effusion or pneumothorax. Louis Fairbanks MD Head Magnetic Resonance Angiography 10/10/17 0000 Signed Impressions: Service Date/Time: September 20:22 - CONCLUSION: 1. Heterogeneity of the distal left internal carotid artery may represent atherosclerotic disease versus flow artifact. Regardless, this does not appear to be flow-limiting and there is no occlusive emboli to explain current clinical symptoms. 2. Otherwise, intracranial vessels are all patent without aneurysmal disease. Patient is left vertebral dominant Bj Altamirano MD Carotid Artery Ultrasound 10/10/17 0000 Signed Impressions: Service Date/Time: September 22:44 - CONCLUSION: 1. Minimal calcified plaquing in both carotid bulbs. 2. Otherwise, no sonographic or Doppler findings of a hemodynamically significant stenosis. Antegrade flow in both vertebral arteries. Bj Altamirano MD Brain MRI 10/10/17 0000 Signed Impressions: Service Date/Time: September 20:22 - CONCLUSION: 1. Chronic changes of moderately severe periventricular and scattered deep white matter tract small vessel ischemic demyelination. 2. Nothing acute. Bj Altamirano MD PE at Discharge GENERAL: This is a well-nourished, well-developed patient, in no apparent distress. CARDIOVASCULAR: Normal rate and regular rhythm without murmurs, gallops, or rubs. RESPIRATORY: Good respiratory efforts. Breath sounds equal and clear to auscultation bilaterally. GASTROINTESTINAL: Abdomen soft, non-tender, non-distended. Normal active bowel sounds MUSCULOSKELETAL: Extremities without cyanosis, or edema. NEURO: Alert & Oriented x4 to person, place, time, situation. Moves all ext x4 PSYCH: Appropriate mood and affect. 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 Evaluation and treatment course detailed below: Probable TIA/CVA Head CT reviewed and shows a remote lacunar infarct right basal ganglia -Neurology consulted on the patient and recommended aspirin and Plavix. Symptomatically bradycardia, suspected Heart rate of 50s, high 40s Tele reviewed, no atrial fibrillation detected. Patient was seen by cardiology -Continue to hold Bisoprolol/HCTZ -Follow-up outpatient with cardiology. Acute kidney injury, suspect dehydration -Resolved with IVF, DC IVF Hypertension, chronic -Resume Amlodipine and Benazepril. Continue to hold Bisoprolol/HCTZ. Patient advised to follow-up outpatient with PCP for further titration of antihypertensives. Anemia, hemoglobin 11.3 -Likely chronic. iron panel unremarkable Hypothyroid, chronic, uncontrolled. -Increase Synthroid dosage. Follow up TSH advised in 6 weeks Pt Condition on Discharge: Good Discharge Disposition: Disch w/ Home Health Serv Discharge Time: > 30 minutes Discharge Instructions DIET: Follow Instructions for: Heart Healthy Diet Activities you can perform: Regular-No Restrictions Follow up Referrals: PCP Follow-up - 1 Week New Medications: Aspirin (Px Aspirin) 325 Mg Tab 325 MG PO DAILY, #30 TAB Atorvastatin (Atorvastatin) 40 Mg Tab 40 MG PO HS, #30 TAB Clopidogrel (Plavix) 75 Mg Tab 75 MG PO DAILY, #30 TAB Changed Medications: Amlodipine (Amlodipine) 10 Mg Tab 10 MG PO DAILY for Blood Pressure Management, #30 TAB 0 Refills (Changed from: Amlodipine 5 Mg Tab 5 Mg PO BID PRN SBP>160, DBP>90 #30 TAB Ref 0) Levothyroxine (Levothyroxine) 100 Mcg Tab 100 MCG PO DAILY for Thyroid, #30 TAB 0 Refills (Changed from: Levothyroxine 75 Mcg Tab 75 Mcg PO DAILY Thyroid #30 TAB Ref 0) Continued Medications: Alendronate (Alendronate) 70 Mg Tab 70 MG PO Q7D for Osteporosis Treatment, #4 TAB 0 Refills Benazepril (Benazepril) 40 Mg Tab 40 MG PO DAILY for Blood Pressure Management, #30 TAB 0 Refills Calcium Carbonate-Cholecalciferol (Calcium 600 with Vitamin D) 600-400 mg-Unit Tab 1 TAB PO DAILY for Calcium Supplement, TAB 0 Refills Cyclosporine Opth (Restasis Opth) 0.05% Emul 1 DROP EACH EYE BID for Dry Eye, #1 BOX 0 Refills Multiple Vitamin (Multi Vitamin Daily) 1 Tab Tab 1 TAB PO DAILY Discontinued Medications: Bisoprolol-Hydrochlorothiazide (Bisoprolol-Hydrochlorothiazide) 2.5-6.25 Mg Tab 1 TAB PO DAILY for Blood Pressure Management, #30 TAB 0 Refills Jasper Evans MD Oct 12, 2017 12:11
[2017-10-12] MEDS ORDERED: CLOPIDOGREL 75 MG TAB PO SCH (16:00)
[2017-10-13] MEDS ORDERED: amLODIPine BESYLATE 5 MG TAB PO SCH (09:00)
--- NOTE | 2017-10-14 12:39 | ECHRPT ---
Indication: CVA/TIA CONCLUSIONS Normal left ventricular size. Wall thickness is normal. Mild thickening of the mitral valve leaflets. Mild mitral valve regurgitation. No mitral valve stenosis. Mild aortic valve regurgitation. The estimated pulmonary arterial pressure is 38mmHg. The pulmonary valve is not well visualized. BP: 170 / 73 HR: 60 Rhythm: MEASUREMENTS (Male / Female) Normal Values Technical Quality:Good 2D ECHO LV Diastolic Diameter PLAX 4.5 cm 4.2 - 5.9 / 3.9 - 5.3 cm LV Systolic Diameter PLAX 3.1 cm IVS Diastolic Thickness 1.0 cm 0.6 - 1.0 / 0.6 - 0.9 cm LVPW Diastolic Thickness 0.7 cm 0.6 - 1.0 / 0.6 - 0.9 cm LV Relative Wall Thickness 0.4 RV Internal Dim ED PLAX 2.0 cm M-MODE Aortic Root Diameter MM 3.1 cm AV Cusp Separation MM 1.9 cm DOPPLER AI Peak Velocity 415.0 cm/s AI Peak Gradient 68.9 mmHg AI Pressure Half Time 544.0 ms Mitral E Point Velocity 80.0 cm/s Mitral A Point Velocity 105.0 cm/s Mitral E to A Ratio 0.8 TR Peak Velocity 288.0 cm/s TR Peak Gradient 33.2 mmHg FINDINGS LEFT VENTRICLE Normal left ventricular size. Wall thickness is normal. The left ventricular systolic function is normal with an estimated ejection fraction in the range of 60-65%. RIGHT VENTRICLE Normal right ventricular size and systolic function. LEFT ATRIUM The left atrial size is normal. RIGHT ATRIUM The right atrial size is normal. ATRIAL SEPTUM Normal atrial septal thickness without atrial level shunting by limited color doppler interrogation. AORTA The aortic root and proximal ascending aorta are normal in size on limited imaging. MITRAL VALVE Structurally normal mitral valve. Mild thickening of the mitral valve leaflets. Mild mitral valve regurgitation. No mitral valve stenosis. AORTIC VALVE Mild aortic valve regurgitation. TRICUSPID VALVE The estimated pulmonary arterial pressure is 38mmHg. PULMONARY VALVE The pulmonary valve is not well visualized. VESSELS The inferior vena cava is normal in size. PERICARDIUM No pericardial effusion. Jairo Dominguez MD, FACC (Electronically Signed) Final Date:14 October 2017 12:38
== END 2017-10-12 15:07 | disposition home health service (06) | DRG 554 ==
LOC: NEDAMB 15:14 → NEDA 18:03 → N05A 20:56
PROVIDERS: ADMIT Family Medicine; ATTEND Family Medicine
DX: M19.90 Unspecified osteoarthritis, unspecified site (principal); N17.9 Acute kidney failure, unspecified; R00.1 Bradycardia, unspecified; E86.0 Dehydration; D64.9 Anemia, unspecified; I10 Essential (primary) hypertension; E03.9 Hypothyroidism, unspecified; R47.81 Slurred speech; Z85.89 Personal history of malignant neoplasm of other organs and systems; Z86.73 Personal history of transient ischemic attack (TIA), and cerebral infarction without residual deficits; Z96.653 Presence of artificial knee joint, bilateral
CPT/HCPCS: 70450; 70544; 70551; 71045; 80048; 80061; 82550; 82552; 82728; 82948; 83036; 83540; 83550; 83735; 84443; 84484; 85025; 85610; 85730; 93005; 93306; 93880; J7030

== ENCOUNTER 2018-01-15 12:22 | Day surgery (SDC) | payer MEDICARE ==
[~2018-01-15 12:22] MED LIST changes: +ALEN1TAB48 PO; +AMLO10TA2 PO; +ASA325 PO; +ATOR40TA16 PO; +BENA40TA PO; -CALC-137 PO; +CALC1TAB87 PO; -LEVO.125 PO; +LEVO100T5 PO; -LOTE40TA PO; +MULT1TAB46 PO; +PLAV75TA29 PO; +REST0.05 EACH EYE; -REST0.05 OU; -TAB-TAB PO; -ZIAC2.5T PO
[2018-01-15] MEDS ORDERED: ceFAZolin 2 GM PREMIX 50 ML IV SCH (12:45)
[2018-01-15] MEDS ORDERED: CHLORHEXIDINE GLUCONATE 2 % 1 PACK (2 CLOTHS) TOPICAL SCH (12:45)
[2018-01-15] MEDS ORDERED: NS 1000 ML IV SCH (12:45)
[2018-01-15] MEDS ORDERED: MUPIROCIN 2% OINT 1 APPLIC/GM SYR NASAL SCH (12:45)
[2018-01-15] MEDS ORDERED: Hold AM Insulin & AM Hypoglycemic medications in diabetic patients PRN (12:45)
[2018-01-15] MEDS ORDERED: POVIDONE IODINE 5% (ANTISEPSIS KIT) 4 APPLICATIONS EACH NARE SCH (12:45)
[2018-01-15] MEDS ORDERED: ATEN25TA PO (13:37)
[2018-01-15] MEDS ORDERED: AMLO10TA2 PO (13:37)
[2018-01-15] MEDS ORDERED: MIDAZOLAM HCL 5 MG/ML VIAL (1 ML) ONE (13:53)
--- NOTE | 2018-01-15 15:23 | MR ---
cc: Mac Clinton MD DATE: 01/15/2018 INDICATION: Syncope. PROCEDURE PERFORMED: 1. Placement of Med[employer]onic Reveal LINQ MRI compatible loop monitor. 2. Moderate sedation. ACCESS SITE: Left anterior chest. EQUIPMENT USED: Medtronic Reveal LINQ MRI compatible monitor. Serial #[id number]. COMPLICATIONS: None. BLOOD LOSS: Less than 1 mL MEDICATIONS: Versed IV, fentanyl IV, and Ancef IV. DESCRIPTION OF PROCEDURE: After the left chest was prepped and draped in usual sterile manner, local anesthesia was applied. Medtronic Reveal LINQ MRI compatible loop monitor was placed without difficulties. R-wave was 1.41 millivolt. DIAGNOSIS: Successful placement of Medtronic Reveal LINQ MRI compatible loop monitor. DISPOSITION: Ms. Morales will continue her current medical program. We will initiate long-term monitoring of her device. I will see her back for followup in our office after discharge. Mac Clinton MD OQ/SB , 03:04 PM , 03:21 PM [id number]
== END 2018-01-15 16:05 | disposition home or self-care (01) ==
LOC: HDOC 12:22 → HDIC 12:23 → HDOC 16:05
PROVIDERS: ATTEND Internal Medicine Interventional Cardiology
DX: R55 Syncope and collapse (principal); G45.8 Other transient cerebral ischemic attacks and related syndromes; I10 Essential (primary) hypertension; E03.9 Hypothyroidism, unspecified; G51.0 Bell's palsy; R60.9 Edema, unspecified
CPT/HCPCS: 33282; 99152; C1764; J0690; J2250; J3010